=== PATIENT | female | born 1985 | race Caucasian/White ===

== ENCOUNTER 2025-05-12 14:47 | Outpatient (REF) | payer BC, SELFPAY ==
--- OUTSIDE RECORDS SUMMARY | 2025-05-12 20:58 | XMS_ITS | Encounter Summary ---
Author Organization [facility] Address [address] [place] [address] Phone Care Team Providers Care Network Strategist Name Role Phone Yuridia Gonzalez NP Primary Care Provider [phone] Encounter Details Date Type Department Care Team (Late st Contact Info) Description 09/12/2023 Procedure Pass [facility], [address] [address] Social History Tobacco Use Types Packs/Day Years Used Date Smoking Tobacco: Former Cigarettes 0.5 13.7 0 11/12/1998 - 07/19/2012 Smokeless Tobacco: Never Alcohol Use Standard Drinks/Week Comments Yes 5 (1 standard drink = 0.6 oz pur e alcohol) rare Education Answer Date Recorded Are you interested in more education? Not on amador e 10/04/2022 Are you concerned about learning? Not on file 10/04/2022 No 10/04/2022 No 10/04/2022 Digital Access Answer Date Recorded No 11/01/2022 No 11/01/2022 Reliable internet access at home? Not on file 11/01/2022 Device with a working camera? Not on file Comments No Sex and Gender Information Value Date Recorded Sex Assigned at Female 07/03/2019 11:24 AM EST Legal Sex Female 9:18 PM EDT Gender Identity Female 07/03/2019 11:24 AM EST Sexual Orientation Straight 07/03/2019 11 :24 AM EST Occupation Industry Job Start Date Job End Date [employer] Not on file Not on file Not on amador e documented as of this encounter Plan of Treatment Not on file documented as of this encounter Visit Diagnoses Not on filedocumented in this encounter Care Teams Network Strategist Relationship Specialty Start Date End Date Yuridia Gonzalez NP [address] [place] [address] [email or web address] PCP - General 07/09/18 documented as of this encounter Additional Source Comments The information contained in this document represents components of the legal health record. It is not the complete legal health record.[facility]
--- OUTSIDE RECORDS SUMMARY | 2025-05-12 20:58 | XMS_ITS | Data Portability ---
Author Organization [place] [facility], Allergy Address [address] [address] Assessment No assessment recorded. Plan of Treatment Reminders Order Date Submit Date Provider Last Modified By Organization Details Last Modified Time Details Appointments None recorded. Lab None recorded. Referral None recorded. Procedures None recorded. Surgeries None recorded. Imaging CT, maxillofa cial, w/o contrast 2023 024 [facility], [address] [place], [address], 4 14:33:46 Medication Orders None recorded. Patient TargetsNo targets recorded. Patient InstructionsNo instructions recorded. Reason for Referral None Reported. Results Created Date Observation Date Name Description Value Unit Range Abnormal Flag Note LastModifiedBy Organization Detail LastModifiedTime 03/15/20 24 01/27/2024 audio gram No observ ation record ed. [email or web address] Not Available 03/09 11:56:47 03/25/20 24 03/19/2024 CT, face, w/o contr ast No observ ation record ed. [email or web address] Not Available 05/20 12:05:49 Result Notes None recorded. Problems Name Problem SNOMED Code Status Onset Date Resolution Date Notes Provider Name and Address Organization Details Recorded Time Spasm 88721720 Active 2016 Other muscle spasm; Note: Date Diagnosed : 06/24/2016 11:36 AM (M62.838) Not Available [facility] 02:53:17 Abnormal auditory perceptio n 00172198 Active 2016 Other abnormal auditory perceptio ns, right ear; Note: Date Diagnosed : 06/24/2016 10:48 AM (H93.291) Not Available [facility] 4 02:53:18 Bilateral disorder of Eustachia n tubes 81994029198 73468 Active 2023 HORTENSIA GRADY MD [address] [facility],[place] [address], [place], [address] , [facility] 21:16:57 Problem Notes None recorded. Procedures Surgical History Date Name Laterality Status Provider Name and Address Organization Details Recorded Time 024 Air & Speech Audio with Tymps - 22595, 70512 & 20895 completed ANTONIO POSEY AUD [address] [facility],[place] [address], [place], [address], [facility] 01/27/2024 10:19:01 024 Fiberoptic Nasopharyngoscopy completed HORTENSIA GRADY MD [address] [facility],[place] [address], [place], [address], [facility] 02/01/2024 21:16:47 Imaging Results None recorded. Procedure Notes None recorded. Medical Equipment None Reported. Allergies Allergen ID Allergen Name Allergen Category Reaction Reaction Severity Criticality Documentation Date Start Date Code Code System Note Provider Name and Address Organization Details Recorded Time 050432 penicilli n V potassium medicatio n other Not available Not available 10/21/202300123 5 RxNorm React ion: unkno wn, unspe cifie d;; Not Available [facility] 4 01:11:25 Medications Name Sig Start Date Stop Date Status Note LastModified by Organization Details LastModified Time doxycycli ne hyclate 100 mg capsule TAKE 1 CAPSULE BY MOUTH TWICE DAILY FOR 7 DAYS 01/26 completed Not Available Not Available Not Available Alyacen 1/35 (28) 1 mg-35 mcg tablet 01/26 completed Medicati on ID: [id number] D uration Value: 84 Brand Name: Alyacen 1/35 (28) Sen d Method: E-Prescr ibed Sub s Allowed: subs OK Speci al Instruct ion: TAKE 1 TABLET BY MOUTH EVERY DAY Medi cationGe nericNam e: Alyacen 1/35 (28) Not Available Not Available Not Available Ct 0.25 mg-0.035 mg tablet TAKE 1 TABLET BY MOUTH DAILY active Not Available Not Available No t Available Vitals Date Recorded Body height Body mass index (BMI) Body weight Provider Name and Address Organization Details Last Updated DateTime 01/27/2024 167.64 cm 22.6 kg/m2 33233.93 g Muna Zaragoza [place] [facility] 01/27/2024 10:09:28 Social History None recorded. Functional Status None recorded. Mental Status None recorded. Family History Nothing Reported. Medical History No medical history recorded. Gynecological HistoryNo gynecological history recorded. Obstetrics History GPAL:G 0 P 0 0 0 0 Past Encounters Encounter ID Performer Location Encounter Start Date Encounter Closed Date Diagnosis/Indication Diagnosis SNOMED-CT Code Diagnosis ICD10 Code Diagnosis IMO Codes Diagnosis Note [id number] HORTENSIA GRADY MD [facility] on [address] [place] [address] 01/27/2024 09:36:59 01/27/2024 11:05:01 Abnormal auditory perception 03521729 H93.292 39-year-ol d female with persistent left sided ear pressure and popping since a sinus infection in 2022. Middle ears are well aerated. Audiometri c testing shows normal hearing. Flexible nasopharyn goscopy shows clear mucus, no polyps or pus or any nasopharyn geal obstructio n. I recommende d avoiding popping the ears as much as possible. Given this started with a sinus infection, I recommende d proceeding with CT maxillofac ial to assess for any obstructiv e pathology given the significan t effect on her quality of life. She can continue the allergy medication s in the interim. Audiologic al evaluation results: 01/27/2024 ight ear:Normal hearing with excellent word recognitio n.Left ear:Normal hearing with excellent word recognitio n. Tympanomet ry:Right Ear:Type ALeft Ear:Type A Bilateral disorder of Eustachian tubes [id number] 745261 H69.93 Health Concerns Section Related Observation LastModified by Organization Detai ls LastModified Time None Recorded Concern Status LastModified by Organization Details LastModified Time None Recorded Advance Directives Directive None Recorded Payers Insurance Date Sequence Insurance Name Policy Number Policy Martines Covered Member ID Martines Member ID Guarantor Name 02/02/2024 1 [facility] [id number] Frannie Barnes [id number] Frannie Barnes Notes Date Note Type Note Provider Name and Address Organization Details Recorded Time 01/27/2024 text/html ROS as noted in the HPI 39-year-old female presents today for evaluation of left-sided ear pressure and popping. She began having symptoms after a sinus infection at the end of 2022. She was on some antibiotics where his symptoms are almost better but they have been stable since then.She does have some allergies. She tried fluticasone, nasal rinses, antihistamines and has now stopped them. NoShe does clench her teeth. She does not use a mouthguard. She denies any history of migraines. HORTENSIA GRADY MD [address] [place] [address], [phone], [facility] 02/01/2024 21:19:27 OBGyn Episode No OBEpisode recorded.
--- OUTSIDE RECORDS SUMMARY | 2025-05-12 20:58 | XMS_ITS | Encounter Summary ---
Author Organization [facility] Address [address] [facility] [address] [place] [address] Phone Care Team Providers Care Baked Goods Stock Clerk Name Role Phone Yuridia Gonzalez NP Primary Care Provider [phone] Encounter Details Date Type Department Care Team (Late st Contact Info) Description 01/27/2024 Procedure Pass [facility], Ct Scan [address] [address] Social History Tobacco Use Types Packs/Day Years Used Date Smoking Tobacco: Former Smokeless Tobacco: Never Alcohol Use Standard Drinks/Week Comments Yes 0 (1 standard drink = 0.6 oz pur [...] Industry Job Start Date Job End Date [employer] Not on file Not on file Not on amador e documented as of this encounter Plan of Treatment Not on file documented as of this encounter Visit Diagnoses Not on filedocumented in this encounter Care Teams Baked Goods Stock Clerk Relationship Specialty Start Date End Date Yuridia Gonzalez NP [address] [place] [address] [email or web address] PCP - General 07/09/18 documented as of this encounter Additional Source Comments The information contained in this document represents components of the legal health record. It is not the complete legal health record.[facility]
--- OUTSIDE RECORDS SUMMARY | 2025-05-12 20:58 | XMS_ITS | Encounter Summary ---
Author Organization [facility] Address [address] [employer] [employer] [address] [place] [address] Phone Care Team Providers Care Paster Hat Lining Name Role Phone Yuridia Gonzalez NP Primary Care Provider [phone] Encounter Details Date Type Department Care Team (Late st Contact Info) Description 12/18/2018 Transcribe Orders [facility] [address] [place] [address] Aubrie Carter CNM [email or web address] Social History Tobacco Use Types Packs/Day Years Used Date Smoking Tobacco: Former Smokeless Tobacco: Never Alcohol Use Standard Drinks/Week Comments No 0 (1 standard drink = 0.6 oz pure alcohol) social drinking when not Comments Yes Sex and Gender Information Value Date Recorded Sex Assigned at Female 07/03/2019 11:24 AM EST Legal Sex Female 9:18 PM EDT Gender Identity Female 07/03/2019 11:24 AM EST Sexual Orientation Straight 07/03/2019 11 :24 AM EST Occupation Industry Job Start Date Job End Date [employer] Not on file Not on file Not on amador e documented as of this encounter Plan of Treatment Not on file documented as of this encounter Visit Diagnoses Not on filedocumented in this encounter Care Teams Paster Hat Lining Relationship Specialty Start Date End Date Yuridia Gonzalez NP [address] [place] [phone] [email or web address] PCP - General 07/09/18 documented as of this encounter Additional Source Comments The information contained in this document represents components of the legal health record. It is not the complete legal health record.[facility]
--- OUTSIDE RECORDS SUMMARY | 2025-05-12 20:58 | XMS_ITS | Encounter Summary ---
Author Organization [facility] Address [address] [facility] [address] [place] [address] Phone Care Team Providers Care Classification Officer Name Role Phone Yuridia Gonzalez NP Primary Care Provider [phone] Encounter Details Date Type Department Care Team (Late st Contact Info) Description 07/31/2018 Procedure Pass [place] Admitting Dept - Virtual Department [address] [place] [address] Social History Tobacco Use Types Packs/Day Years [...] Industry Job Start Date Job End Date [employer] Not on file Not on file Not on amador e documented as of this encounter Plan of Treatment Not on file documented as of this encounter Visit Diagnoses Not on filedocumented in this encounter Care Teams Classification Officer Relationship Specialty Start Date End Date Yuridia Gonzalez NP [address] [place] [phone] [email or web address] PCP - General 07/09/18 documented as of this encounter Additional Source Comments The information contained in this document represents components of the legal health record. It is not the complete legal health record.[facility]
--- OUTSIDE RECORDS SUMMARY | 2025-05-12 20:58 | XMS_ITS | Encounter Summary ---
Author Organization [facility] Address [address] [facility] [address] [place] [address] Phone Care Team Providers Care Assistance Specialist Name Role Phone Yuridia Gonzalez NP Primary Care Provider [phone] Reason for Referral * MRI/CAT Scan - Closed Specialty Diagnoses / Procedures Referred By Melo jurado Referred To Contact Radiology Diagnoses Other abnormal auditory perceptions, left ear Procedures CT Face CHG CT SCAN,MAXILLOFACIAL AREA,W/O CONTRAST Janelle Kebede MD Phone: tel: fax: [email or web address] Referral ID Status Reason Start Date Expiration Date Visits Re quested Visits Authorized [id number] Closed 03/09/2024 04/23/2024 1 1 Encounter Details Date Type Department Care Team (Latest Contact Info) Description 01/27/2024 Transcribe Orders Virtual Department [address] [place] [address] Janelle Kebede MD [address] [place] [address], [address] [place] [address] [email or web address] Other abnormal auditory perceptions, left ear (Primary Dx) Social History Tobacco Use Types Packs/Day Years [...] Industry Job Start Date Job End Date [employer] Not on file Not on file Not on amador e documented as of this encounter Plan of Treatment Not on file documented as of this encounter Results * CT FACE WITHOUT CONTRAST (03/19/2024 12:26 PM EDT) Anatomical Region Laterality Modality Face Computed Tomogra phy 03/23/2024 12:3 5 PM EDT Impressions 03/23/2024 12:58 PM EDT 1. Mild paranasal sinus mucosal thickening. 2. Rightward nasal septum deviation. Narrative 03/23/2024 12:[address] FACE WITHOUT CONTRAST Referring clinician's provided indication for this examination in [facility]: Outside Radiology Order; abnormal auditory perception. Left sinus pressure. TECHNIQUE: Multidetector-row CT of the face was performed without intravenous contrast using tailored dose modulation techniques. Images were reconstructed in the axial, coronal, and sagittal planes. COMPARISON: No prior studies. FINDINGS: Frontal sinuses and frontoethmoidal junctions: Frontal sinuses are well pneumatized and aerated. Anterior and posterior ethmoid air cells: There is mucosal thickening in the left anterior ethmoid air cells. The right ethmoid roof is slightly lower than the left. The lamina papyraceous are grossly intact. Maxillary sinuses and infundibula: Focal lobulated mucosal thickening in the left inferior maxillary sinus wall which could be due to mucosal thickening or could represent a mucosal retention cyst. There is mild mucosal thickening in the right maxillary sinus which is smaller or hypoplastic. The ostiomeatal units are grossly patent although there is mild partial opacification on the left. The infundibula is bordered by the orbital wall. Sphenoid sinuses and sphenoethmoidal recesses: Grossly clear. Nasal cavity: Rightward nasal septal deviation. Imaged maxillary teeth: No periapical lucencies. Mastoid air cells and middle ear cavities: Clear. No significant abnormality detected in the visualized temporal bones. Temporomandibular joints: Mild degenerative remodeling. Brain: Images of the brain parenchyma are not of diagnostic quality for the soft tissues. No focal abnormality is visible with this technique. Orbits and globes: No abnormality. Other findings: Few scattered mildly prominent lymph nodes noted at the level 2A bilaterally, possibly reactive. Procedure Note Dave Stewart MD - 03/23/2024 CT FACE WITHOUT CONTRAST Referring clinician's provided indication for this examination in [employer]:Outside Radiology Order; abnormal auditory perception. Left sinuspressure. TECHNIQUE: Multidetector-row CT of the face was performed withoutintravenous contrast using tailored dose modulation techniques. Imageswere reconstructed in the axial, coronal, and sagittal planes. COMPARISON: No prior studies. FINDINGS: Frontal sinuses and frontoethmoidal junctions: Frontal sinuses are wellpneumatized and aerated. Anterior and posterior ethmoid air cells: There is mucosal thickening inthe left anterior ethmoid air cells. The right ethmoid roof is slightlylower than the left. The lamina papyraceous are grossly intact. Maxillary sinuses and infundibula: Focal lobulated mucosal thickening inthe left inferior maxillary sinus wall which could be due to mucosalthickening or could represent a mucosal retention cyst. There is mildmucosal thickening in the right maxillary sinus which is smaller orhypoplastic. The ostiomeatal units are grossly patent although there ismild partial opacification on the left. The infundibula is bordered by theorbital wall. Sphenoid sinuses and sphenoethmoidal recesses: Grossly clear. Nasal cavity: Rightward nasal septal deviation. Imaged maxillary teeth: No periapical lucencies. Mastoid air cells and middle ear cavities: Clear. No significantabnormality detected in the visualized temporal bones. Temporomandibular joints: Mild degenerative remodeling. Brain: Images of the brain parenchyma are not of diagnostic quality forthe soft tissues. No focal abnormality is visible with this technique. Orbits and globes: No abnormality. Other findings: Few scattered mildly prominent lymph nodes noted at thelevel 2A bilaterally, possibly reactive. IMPRESSION: 1. Mild paranasal sinus mucosal thickening. 2. Rightward nasal septum deviation. Janelle Kebede MD IMG CT HEAD/NECK Final Res ult documented in this encounter Visit Diagnoses Diagnosis Other abnormal auditory perceptions, left ear- Primary Other abnormal auditory perceptions, left ear documented in this encounter Care Teams Assistance Specialist Relationship Specialty Start Date End Date Yuridia Gonzalez NP [address] [place] [address] [email or web address] [email or web address] - General 07/09/18 documented as of this encounter Additional Source Comments The information contained in this document represents components of the legal health record. It is not the complete legal health record.[facility]
--- OUTSIDE RECORDS SUMMARY | 2025-05-12 20:58 | XMS_ITS | Clinical Summary ---
Author Organization [facility] Address [address] [facility] [address] [facility] [address] [place] [id number] Phone Care Team Providers Care Health Unit Supervisor Name Role Phone Yuridia Gonzalez NP Primary Care Provider [phone] Allergies Active Allergy Reactions Criticality Noted Date Comments Penicillins Hives 07/17/2018 As a kid Medications therapeutic multivitamin tablet Take 1 tablet by mouth daily. Active norgestimate-ethin yl estradioL (ABDULKADIR) 0.25-0.035 mg per tabletIndications: Encounter for surveillance of contraceptive pills Take 1 tablet by mouth daily. 84 tablet 3 5 Active Active Problems Problem Noted Date Diagnosed Date Breast cancer screening, high risk patient 04/12 Overview (04/12/2022): 27% lifetime risk per RAMOS model on 04/12/22 Assessment & Plan (04/12/2022 1:28 PM EDT): Discussed with pt and reviewed early mammo vs cancer genetics consult. Plan made to order mammo at today's visit and f/u as needed with results. History of penicillin allergy 06/14/2019 Overview (06/14/2019): Patient states she was told as a young child she may have had some sort of a mild rash with treatment of an ear infection. Unclear if it was an actual allergy. Iron deficiency anemia 04/01/2019 Overview (04/01/2019): 04/01: Hb 10.2, at 34 weeks. Iron supplements recommended. Assessment & Plan (04/22/2019 11:57 AM EST): Taking iron, sometimes forgets Resolved Problems Problem Noted Date Diagnosed Date Resolved Date Full-term premature rupture of membranes with onset of labor within 24 hours of rupture 07/03/2019 07/04/2019 Assessment & Plan (07/03/2019 12:59 PM EST): ROM confirmed. Clear fluid. Pt continues with irreg UCs. Risks/benefits of proceeding with labor induction discussed. Pt feels there has been slight increase in UCs and requesting few hours of expectant mgmt and then in not continuing to not change will proceed with induction. Encounter for car e of lactating mother 07/03/2019 09/12/2023 High risk , multigr avida of advanced maternal age in third trimester 11/19/2018 07/04/19 20 Overview (07/01/2019): Rh pos Tdap 04/22/19 Flu declines Hgb 10.2 GTT 101 GBS neg PPBC thinking of POCP again screening plans cfDNA- neg; XX Assessment & Plan (06/14/2019 12:27 PM EST): Patient feeling well. Notes good movement. GBS screen done today. Has noted some external hemorrhoids and has been using Preparation H with minimal relief. Have suggested 1% hydrocortisone ointment twice daily as needed. Assessment & Plan (05/14/2019 11:14 AM EST): Feels well. No concerns. Notes good movement. Continues to decline flu shot. José Miguel feels possible transverse lie today. Follow-up 2 weeks. Assessment & Plan (04/22/2019 11:57 AM EST): Good FM, doing well; declines flu vaccine, explained recommendation; Tdap today Assessment & Plan (03/23/2019 11:35 AM EDT): She notes good movement. She denies any vaginal bleeding, LOF or regular contractions. Overall, she is doing well. She declines the flu vax. CBC and glucola ordered. Assessment & Plan (02/22/2019 11:58 AM EDT): No concerns today. Pt noting FM. Feels well. Anatomic survey was rescheduled by office from last week to later this week. Assessment & Plan (01/22/2019 12:40 PM EDT): Has had neg cfDNA testing. Pt feeling well. Has no concerns today. Plan to schedule anatomy scan. Multigravida of advanced mat ernal age in second trimester 11/19/2018 06/14/2019 Overview (01/05/2019): o Risks of aneuploidy discussed w patient. o Offered - Offer cell free DNA - Level 2 - Offer [facility] and am[facility] o Pt. Chooses cfDNA, Level 2 Neg cfDNA Missed 07/30/2018 11/19/2018 Overview (07/30/2018): Only 1 mm growth in CRL in a Week (5-7 mm expected), now 6.2 mm, no FHR. Based on lack of growth, this is diagnostic of SAb. Assessment & Plan (07/30/2018 4:37 PM EST): Had had thorough counseling last week, is certain she wants D&C as soon as possible. Risks infection, bleeding , pain , organ injury discussed. She will sign surgical consent in Pre-op with the MD performing surgery SAb grief/emotions noted as well, usual cause a trisomy, etc with inconclusive viability 07/23/2018 07/30/2018 Overview (07/23/2018): U/S at 7wk5d with sure LMP CRL 6wk1 (5mm) day with no FHR Large Gestational Sac Assessment & Plan (07/23/2018 11:20 AM EST): Highly suspicious for MAB but does not quite meet criteria C/W Dr Rubio As CRL not > 7mm cannot diagnose MAB yet, need to have a repeat U/S in 7-10 days with appt to follow Pt set up for follow up, if she does not start bleeding prior to appt and MAB is confirmed, she will likely want a D&C scheduled. Elderly multigravida in first trimester 07/17/2018 07/30/2018 Overview (07/17/2018): o Risks of aneuploidy discussed w patient. o Offered - Offer cell free DNA - Level 2 - Offer [facility] and [facility] o Pt. chooses Interested in CFDNA, will look into insurance coverage Immunizations Immunization Administration Dates Next Due COVID-19 (Pre-03/31) Pfizer Vaccine, mRNA, PF ,12/21/2020 Influenza Quadrivalent Preservative Free IM 01/2014 Td (adult) 5 Lf Tetanus Toxoid, PF, Adsorbed Tdap 04/22/2019 Family History Medical History Relation Comments No Known Problems Father Breast cancer Maternal Grandmother Dementia Maternal Grandmother Diabetes mellitus Maternal Grandmother Breast cancer Mother Hypertension Mother Relation Status Comments Daughter Alive Father Alive Maternal Grandmother Mother Alive Social History Tobacco Use Types Packs/Day Years Used Date Smoking Tobacco: Former Cigarettes 0.5 13.7 0 11/12/1998 - 07/19/2012 Smokeless Tobacco: Never Tobacco Cessation:Counseling Given: Not Answered Alcohol Use Standard Drinks/Week Comments Yes 5 [...] Industry Job Start Date Job End Date [employer] Not on file Not on file Not on amador e Last Filed Vital Signs Vital Sign Reading Time Taken Comments Blood Pressure 110/68 01/04/2025 8:50 AM EDT Pulse 62 06/25/2023 10:57 AM EST Temperature 36.7 C (98 F) 06/25/2023 10:57 AM EST Respiratory Rate 16 06/25/2023 10:57 AM EST Oxygen Saturation 100% 06/25/2023 10:57 AM EST Inhaled Oxygen Concentration - - Weight 63.7 kg (140 lb 6.4 oz) 01/04/2025 8:50 A M EDT Height 167.6 cm (5' 5.98 ) 01/04/2025 8:50 AM ED T Body Mass Index 22.67 01/04/2025 8:50 AM EDT Plan of Treatment Health Maintenance Due Date Last Done Comments DEPRESSION SCREENING 1995 INFLUENZA VACCINE (#1) 2025 06/16/2013 COVID-19 VACCINE (2024-2 6 season) 2025 01/28/2022, 01/12/2021, 12/21/2020 PAP SMEAR 02/15/2026 02/15/2021, 01/22/2016, 01/22/2016 MAMMOGRAM 06/18/2026 06/18/2024 Adult Td,Tdap Booster 04/22/2029 04/22/2019 , 10/23/2009 SMOKING STATUS SCREENING (Every 5 Years) 01/04/2030 01/04/2025 HEPATITIS C SCREENING Completed 07/17/2018 , 07/17/2018 HIV ONE-TIME SCREENING (18-6 5 YEARS) Completed 07/17/2018 HEPATITIS A VACCINES Aged Out No long er eligible based on patient's age to complete this topic HIB VACCINES Aged Out No longer eligi ble based on patient's age to complete this topic MENINGOCOCCAL VACCINES (ACWY) Aged Out No longer eligible based on patient's age to complete this topic MENINGOCOCCAL VACCINES (B) Aged Out N o longer eligible based on patient's age to complete this topic PNEUMOCOCCAL VACCINES (0-49 years) Aged Out No longer eligible b ased on patient's age to complete this topic Medical Devices Not on file Procedures Procedure Name Priority Date/Time Associated Diagnosis Comments BI MAMMOGRAM SCREENING WITH TOMOSYNTHESIS WITH CAD (BILATERAL) Routine 06/18/2024 12:43 PM EST Encounter for gynecological examination without abnormal finding Breast cancer screening, high risk patient PAP TEST Routine 02/15/2021 12:00 AM EDT HEPATITIS C ANTIBODY, QUALITATIVE Routine 07/17/2018 1:23 PM EST Encounter for supervision of other normal in first trimester from Last 3 Months or Most Recently Relevant to Health Maintenance Results * BI MAMMOGRAM SCREENING WITH TOMOSYNTHESIS WITH CAD (BILATERAL) (06/18/2024 12:43 PM EST) Anatomical Region Laterality Modality Breast Left, Breast Right, Breast Bilateral Bila teral Mammography 06/20/2024 12:2 4 PM EST Impressions 06/20/2024 12:25 PM EST No mammographic evidence of malignancy in either breast. Annual screening mammography is recommended. BI-RADS 1 NEGATIVE The patient will be notified of the results and recommendations. Narrative 06/20/2024 12:25 PM EST BI MAMMOGRAM SCREENING WITH TOMOSYNTHESIS WITH CAD (BILATERAL) Additional patient information: Screening. COMPARISON: This is a baseline examination. Breast composition: The breast tissue is heterogeneously dense which may obscure small masses. FINDINGS: No abnormal masses, suspicious calcifications, or other significant findings are identified mammographically in either breast. Procedure Note Amira Cruz MD - 06/20/2024 BI MAMMOGRAM SCREENING WITH TOMOSYNTHESIS WITH CAD (BILATERAL) Additional patient information: Screening. COMPARISON: This is a baseline examination. Breast composition: The breast tissue is heterogeneously dense which mayobscure small masses. FINDINGS: No abnormal masses, suspicious calcifications, or other significantfindings are identified mammographically in either breast. IMPRESSION: No mammographic evidence of malignancy in either breast. Annual screening mammography is recommended. BI-RADS 1 NEGATIVE The patient will be notified of the results and recommendations. us Erica Rubio MD IMG MG EXAMS Final Result * Pap Smear (02/15/2021 12:00 AM EDT) 02/15/2021 02/16/2021 9:0 4 AM EDT Narrative SEE NARRATIVE - 02/21/2021 9:35 AM EDT [address] [address] Bonding Machine Operator: Muna Venegas MD RADIO STATION AUDIO ENGINEER Cytology Report FINAL DIAGNOSIS A. PAP SMEAR (SUREPATH) CE: SPECIMEN ADEQUACY: Satisfactory for evaluation; transformation zone present. INTERPRETATION: NEGATIVE FOR INTRAEPITHELIAL LESION OR MALIGNANCY. Electronically Signed Out By: KELLY Bowman(ASCP) The Pap test is a screening test primarily for squamous cancers and precursors and has associated false-negative and false-positive results. New technologies such as liquid-based preparations may decrease but will not eliminate all false-negative results. Regular sampling and follow-up of unexplained clinical signs and symptoms are recommended to minimize false negative results. PROCEDURES/ADDENDA HPV Testing (Requested) Ordered Date: 02/16/2021 A. PAP SMEAR (SUREPATH) CE: Human Papilloma Virus Test Negative for high-risk human papillomavirus types 16, 18, 45 and the Other high risk probe set (Includes 31, 33, 35, 39, 51, 52, 56, 58, 59, 66, 68) by [employer]amer Onclarity HR-HPV analysis. Clinical correlation is advised. This HPV test was performed at [facility], [address] [place] [address]. This test has been FDA approved for SurePath cervical cytology specimens. The accuracy and precision of this test for all other specimen sources has been verified in the Cytopathology Laboratory of the [facility] and has not been cleared or approved by the U.S. Food and Drug Administration. Clinical correlation is advised. CLINICAL HISTORY Date of Last Menstrual Period: Not Provided Menstrual History: Unknown Other Clinical Conditions: Screening Pap SPECIMEN SOURCE A: PAP SMEAR (SUREPATH) CE Patient Name: SERGIO BARNES : 1985 (Age: 36) Sex: F Institution: [facility] Location: [facility] Date of Collection: 02/15/2021 Date of Reported: 02/16/2021 16:15 Results to: Chinyere Short MD us Chinyere Short MD CYTOLOGY ORDERABLES Edited Result - Final SEE NARRATIVE * Hepatitis C antibody, qualitative (07/17/2018 1:23 PM EST) HCV Negative Negative [facility] Comment: This is a screening test and should be confirmed with molecular testing Blood 07/17/2018 1:23 PM EST 07/17/2018 1:30 PM EST us Marianna Kent CNM LAB BLOOD BKR ORDERABLES Final Result Performing Organization Address City/[facility]/ZIP Co de Phone Number [facility] [address] [place] [address] from Last 3 Months or Most Recently Relevant to Health Maintenance Advance Directives For more information, please contact: [phone] (9AM - 5PM [place]/[facility], Friday-Friday) Documents on File Type Date Recorded Patient Accounts Officer Expl anation Healthcare Proxy 07/05/2019 2:05 PM * Full Code (Presumed) (Latest Code Status on File) Date Activated Date Inactivated Comments 07/04/2019 12:32 AM 07/04/2019 4:05 PM * Full Code (Presumed) Date Activated Date Inactivated Comments 07/03/2019 1:02 PM 07/04/2019 12:32 AM * Full Code (Presumed) Date Activated Date Inactivated Comments 07/31/2018 10:29 AM 07/31/2018 4:33 PM Care Teams Health Unit Supervisor Relationship Specialty Start Date End Date Yuridia Gonzalez NP [address] [place] [id number] [email or web address] PCP - General 07/09/18 Additional Source Comments The information contained in this document represents components of the legal health record. It is not the complete legal health record.[facility]
[2025-05-14 21:48] LABS: TS Negative Control Passed; TS Panel A 0; TS Panel B 0; TS Positive Control Passed; TSpotTB Negative (Negative)
== END 2025-05-12 14:48 | disposition home or self-care (01) ==
LOC: HO.LAB 14:47
PROVIDERS: Visit Provider Emergency Medicine
DX: Z02.1 Encounter for pre-employment examination (principal); Z11.1 Encounter for screening for respiratory tuberculosis
CPT/HCPCS: 36415; 86481